=== PATIENT | female | born 1960 | race African-American/Black ===

== ENCOUNTER 2017-05-07 08:20 | Inpatient (IN) | payer MEDICAID, OTHER ==
[~2017-05-07] VITALS: Ht 167.6 cm; Wt 74.8 kg
[~2017-05-07 08:20] MED LIST: BP MEDS
[2017-05-07] MEDS ORDERED: QUET25TA PO (08:26)
[2017-05-07] MEDS ORDERED: TRAZ-129 PO (08:26)
[2017-05-07] MEDS ORDERED: SODIUM CHLORIDE 0.9% 1,000 ML IV ONE ×2 (08:37→09:45)
[2017-05-07] MEDS ORDERED: MORPHINE SULFATE 4 MG/ML CPJ (NOT FOR IM USE) IV STA (08:37)
[2017-05-07 09:06] LABS: CHLORIDE 105 mEq/L (98-107)
[2017-05-07 09:08] LABS: PROTHROMBIN TIME 10.7 sec (9.4-11.6)
[2017-05-07 09:14] LABS: BASOPHILS % 0.4 % (0.0-2.0); EOSINOPHILS % 1.1 % (0.0-5.0); HEMATOCRIT. 39.1 % (36.0-48.0); HEMOGLOBIN. 12.9 g/dL (12.0-16.0); LYMPHOCYTES % 12.6 % (20.0-50.0); MEAN CORPUSCULAR HEMOGLOBIN 29.5 pg (28.0-32.0); MEAN CORPUSCULAR VOLUME 89.2 fL (81.0-99.0); MEAN PLATELET VOLUME 9.3 fl (7.4-10.4); NEUTROPHILS % 80.9 % (40.0-76.0); PLATELET 182 x1000/uL (130-400); RED BLOOD CELL COUNT 4.38 mill/uL (4.2-5.4); RED CELL DISTRIBUTION WIDTH 14.6 % (11.6-14.6)
[2017-05-07 09:15] LABS: CARBON DIOXIDE 28 mEq/L (21-32)
[2017-05-07 09:35] LABS: CLARITY URINE CLEAR (CLEAR); COLOR URINE YELLOW (YELLOW); GLUCOSE URINE NEGATIVE (NEGATIVE); KETONES URINE NEGATIVE (NEGATIVE); LEUKOCYTE ESTERASE URINE NEGATIVE (NEGATIVE); NITRITE URINE NEGATIVE (NEGATIVE); OCCULT BLOOD URINE NEGATIVE (NEGATIVE); PH URINE 5.5 (4.5-8.0); PROTEIN URINE NEGATIVE (NEGATIVE); SPECIFIC GRAVITY URINE 1.023 (1.005-1.030); UROBILINOGEN URINE 0.2 E.U./dL (0.2-1.0)
[2017-05-07] MEDS ORDERED: MORPHINE SULFATE 4 MG/ML CPJ (NOT FOR IM USE) IV ONE ×2 (09:45→11:15)
[2017-05-07] MEDS ORDERED: IOHEXOL-300 100 ML BOTTLE ONE (11:08)
[2017-05-07] MEDS ORDERED: DEXT 5%/0.45% NACL 1000ML 1,000 ML IV ONE (11:10)
[2017-05-07] MEDS ORDERED: MORPHINE SULFATE 4 MG/ML CPJ (NOT FOR IM USE) IV PRN ×3 (11:15→17:30)
[2017-05-07] MEDS ORDERED: METRONIDAZOLE 500 MG PREMIX 100 ML IV ONE (11:15)
[2017-05-07] MEDS ORDERED: CEFAZOLIN 2,000 MG in DEXT 5% WATER 100 ML IV SCH (11:15)
[2017-05-07] MEDS ORDERED: CEFAZOLIN SODIUM 1000MG/VIAL ONE (11:27)
[2017-05-07] MEDS ORDERED: SODIUM CHLORIDE 0.9% 1,000 ML IV SCH ×2 (11:41→15:00)
[2017-05-07] MEDS ORDERED: PIPERACILLIN/TAZ 3.375G PREMIX 50 ML IV SCH (11:45)
[2017-05-07] MEDS ORDERED: ONDANSETRON HCL 4MG/2ML VIAL IV PRN ×3 (11:45→17:00)
[2017-05-07] MEDS ORDERED: CLONIDINE 0.1MG TABLET PO PRN ×2 (11:45→15:00)
[2017-05-07] MEDS ORDERED: MORPHINE SULFATE 2 MG/ML CPJ (NOT FOR IM USE) IV PRN ×2 (11:45→15:00)
[2017-05-07] MEDS ORDERED: ACETAMINOPHEN 325MG TABLET PO PRN ×2 (11:45→15:00)
[2017-05-07] MEDS ORDERED: POTASSIUM CHLORIDE INJ 40 MEQ in DEXT 5% WATER 500 ML IV ONE ×2 (11:45→15:43)
[2017-05-07] MEDS ORDERED: HYDROCODONE/ACETAMINOPHEN 5/325MG TABLET PO PRN ×3 (11:45→17:00)
[2017-05-07] MEDS ORDERED: IPRATROPIUM/ALBUTEROL 0.5-3(2.5)MG/3ML NEB INH PRN ×2 (11:45→15:00)
[2017-05-07] MEDS ORDERED: DIPHENHYDRAMINE 50MG/ML VIAL IV PRN ×2 (11:45→15:00)
[2017-05-07] MEDS ORDERED: SKIN ADHESIVE 0.7 GM EA TOP ONE (14:13)
[2017-05-07] MEDS ORDERED: BUPIVACAINE HCL 0.5% (5MG/ML) 50ML ONE (14:13)
[2017-05-07] MEDS ORDERED: PROPOFOL 200MG/20ML VIAL IV ONE (15:07)
[2017-05-07] MEDS ORDERED: LIDOCAINE HCL 1% 20ML VIAL (Pyxis) INJ ONE (15:07)
[2017-05-07] MEDS ORDERED: ROCURONIUM BROMIDE 10MG/ML VIAL 5ML IV ONE (15:08)
[2017-05-07] MEDS ORDERED: MIDAZOLAM HCL 2 MG/2 ML VIAL ONE (15:08)
[2017-05-07] MEDS ORDERED: FENTANYL CITRATE/PF 50MCG/ML 2ML VIAL ONE (15:08)
[2017-05-07] MEDS ORDERED: SUCCINYLCHOLINE CHLORIDE 200MG/10ML VIAL IV ONE (15:08)
[2017-05-07] MEDS ORDERED: DEXAMETHASONE 4MG/ML 1ML VIAL ONE (16:07)
[2017-05-07] MEDS ORDERED: ONDANSETRON HCL 4MG/2ML VIAL ONE (16:07)
[2017-05-07] MEDS ORDERED: NEOSTIGMINE METHYLSULFATE 1MG/ML 10 ML VIAL ONE (16:21)
[2017-05-07] MEDS ORDERED: GLYCOPYRROLATE 0.2 MG/ML 2ML VIAL ONE (16:21)
[2017-05-07] MEDS ORDERED: ACETAMINOPHEN 650MG SUPP PR PRN (17:00)
[2017-05-07 20:00] VITALS: BP 130/83
[2017-05-07] MEDS: MORPHINE SULFATE 4 MG/ML CPJ (NOT FOR IM USE) IV PRN (20:48)
[2017-05-07] MEDS: DEXT 5%/0.45% NACL KCL 20MEQ/L 1,000 ML IV SCH (22:39)
[2017-05-07] MEDS: PIPERACILLIN/TAZ 3.375G PREMIX 50 ML IV SCH (22:41)
[2017-05-07] MEDS ORDERED: TRAZ150T78 PO (23:10)
[2017-05-07] MEDS ORDERED: QUET300T2 PO (23:12)
[2017-05-07] MEDS: TRAZODONE HCL 100MG TABLET PO SCH (23:40)
[2017-05-07] MEDS: QUETIAPINE FUMARATE 100MG TABLET PO SCH (23:40)
[2017-05-08] VITALS (7 sets, daily range): BP systolic 109–166; BP diastolic 65–79
[2017-05-08] MEDS: MORPHINE SULFATE 4 MG/ML CPJ (NOT FOR IM USE) IV PRN ×7 (00:02→22:46)
[2017-05-08] MEDS: PIPERACILLIN/TAZ 3.375G PREMIX 50 ML IV SCH ×2 (05:24→14:42)
[2017-05-08] MEDS: SODIUM CHLORIDE 0.9% INJ 3ML FLUSH IVF SCH ×3 (05:27→22:47)
[2017-05-08] MEDS: DEXT 5%/0.45% NACL KCL 20MEQ/L 1,000 ML IV SCH (06:08)
[2017-05-08] MEDS ORDERED: MAGNESIUM/ALUMINUM HYDROXIDE/SIMETHICONE 30ML UDC PO PRN (11:15)
[2017-05-08] MEDS: LACTULOSE 20G/30ML UDC PO SCH ×2 (14:43→21:43)
[2017-05-08] MEDS: QUETIAPINE FUMARATE 100MG TABLET PO SCH (21:07)
[2017-05-08] MEDS: HYDROCODONE/ACETAMINOPHEN 5/325MG TABLET PO PRN (21:08)
[2017-05-08] MEDS: TRAZODONE HCL 100MG TABLET PO SCH (21:08)
[2017-05-08 21:35] LABS: CARBON DIOXIDE 29 mEq/L (21-32); CHLORIDE 104 mEq/L (98-107)
[2017-05-09] VITALS: BP 112/72
[2017-05-09] MEDS: PIPERACILLIN/TAZ 3.375G PREMIX 50 ML IV SCH ×2 (00:59→06:02)
[2017-05-09] MEDS: HYDROCODONE/ACETAMINOPHEN 5/325MG TABLET PO PRN (01:01)
[2017-05-09 04:00] VITALS: BP 105/53
[2017-05-09] MEDS: LACTULOSE 20G/30ML UDC PO SCH (06:00)
[2017-05-09] MEDS: MORPHINE SULFATE 4 MG/ML CPJ (NOT FOR IM USE) IV PRN ×2 (06:06→09:34)
[2017-05-09] MEDS: SODIUM CHLORIDE 0.9% INJ 3ML FLUSH IVF SCH (06:10)
[2017-05-09 06:11] VITALS: BP 125/55
[2017-05-09] MEDS ORDERED: DEXT 5%/0.45% NACL KCL 20MEQ/L 1,000 ML IV SCH (07:00)
[2017-05-09] MEDS ORDERED: POTASSIUM CHLORIDE 20MEQ TABLET SR PO SCH (07:15)
[2017-05-09 08:00] VITALS: BP 142/79
[2017-05-09 12:00] VITALS: BP 144/77
[2017-05-09 14:39] VITALS: BP 144/77
[2017-05-09] MEDS ORDERED: PIPERACILLIN/TAZ 3.375G PREMIX 50 ML IV SCH (15:00)
== END 2017-05-09 15:00 | disposition home or self-care (01) | DRG 225 ==
LOC: ER 08:32 → 6EST 11:15 → ENRESERV 14:46 → ER 14:49
PROVIDERS: ADMIT Internal Medicine; ATTEND Internal Medicine
PROC: 0DTJ4ZZ Resection of Appendix, Percutaneous Endoscopic Approach (ICD-10-PCS; principal; 2017-05-07 14:30)
DX: K35.80 Unspecified acute appendicitis (principal); K65.9 Peritonitis, unspecified; N17.9 Acute kidney failure, unspecified; I10 Essential (primary) hypertension; E87.6 Hypokalemia; F32.9 Major depressive disorder, single episode, unspecified; F41.1 Generalized anxiety disorder; Z72.0 Tobacco use; Z98.51 Tubal ligation status; Z79.899 Other long term (current) drug therapy; Z80.8 Family history of malignant neoplasm of other organs or systems; E83.51 Hypocalcemia
CPT/HCPCS: 36415; 51702; 74177; 74181; 80048; 80053; 81003; 81025; 83605; 83690; 85025; 85610; 87077; 87086; 87186; 88304; 94664; 96374; 96376; 99285; J0330; J0690; J1100; J1200; J2250; J2270; J2405; J2543; J2704; J2710; J3010; J3490; J7030; J7060; J7620; Q9967; A4315